=== PATIENT | female | born 1955 | race Caucasian/White ===

== ENCOUNTER 2019-08-12 07:23 | Outpatient (CLI) | payer OTHER, SELFPAY ==
--- NOTE | ~2019-08-12 | DEXA_ITS ---
Bone Density Report Name: Rhoda Ibarra Age: 64 Sex: Female Ethnicity: White Date of : 1955 Indication: postmenopausal; height loss; prior fracture; Referring Provider: CHI AUGUST Study: Bone densitometry was performed. Exam Date: August 12, 2019 Accession number: [id number] Bone Density: Region BMD T-score Z-score Classification AP Spine (L1-L4) 0.873 -1.6 0.2 Osteopenia Femoral Neck (Left) 0.732 -1.1 0.5 Osteopenia Total Hip (Left) 0.871 -0.6 0.7 Normal Total Hip Bilateral Avg 0.867 -0.7 0.7 Normal Femoral Neck (Right) 0.716 -1.2 0.3 Osteopenia Total Hip (Right) 0.862 -0.7 0.6 Normal World Health Organization criteria for BMD impression classify patients as: Normal (T-score at or above -1.0), Osteopenia (T-score between -1.0 and -2.5), or Osteoporosis (T-score at or below -2.5). 10-year Fracture Risk(1): Major Osteoporotic Fracture 12% Hip Fracture 1.0% Reported Risk Factors: [place] (), Neck BMD=0.716, BMI=39.7, previous fracture (1) FRAX(R) Version 3.08. Fracture probability calculated for an untreated patient. Fracture probability may be lower if the patient has received treatment. Clinical Information Provided by Patient: Has had a low trauma fracture Has used the following medications: Vitamin D Patient maximum height was 69 Menopause Age: 32 No regular weight bearing exercise Drinks caffeinated beverages Onset of menses at age 13 Number of children 1 Impression: The patient has low bone mass, based on the Total Spine T-score. The patient has an estimated ten-year risk of hip fracture of 1% and an estimated ten-year risk of major fracture of 12%, based on the WHO FRAX algorithm. The patient has risk factors, including: previous fracture. Discussion: BONE DENSITY IS LOW AT ONE OR MORE SKELETAL SITES. This patient's lowest T-score is low at one or more skeletal sites. It meets the World Health Organization's (WHO) criteria for ?low bone mass? (T-score between -1.0 and -2.5). The patient's 10-year risk of fracture as calculated by FRAX is less than the threshold where pharmacological therapy is recommended by the National Osteoporosis Foundation (NOF). However, all treatment decisions require clinical judgment and consideration of individual patient factors, including patient preferences, comorbidities, previous drug use, risk factors not captured in the FRAX model (e.g., frailty, falls, vitamin D deficiency, increased bone turnover, interval significant decline in bone density) and possible under or overestimation of fracture risk by FRAX. The patient should follow a healthful lifestyle (good nutrition with adequate calcium and vitamin D, and appropriate weight-bearing exercise). Follow-Up: Consider repeating this study in 2 to 3 years to reassess this patient's status, o
--- NOTE | ~2019-08-12 | US_ITS ---
EXAMINATION: US aorta [facility] DATE: 08/12/2019 08:02 INDICATION: Abdominal aortic aneurysm screening. TECHNIQUE: Grayscale, color Doppler, and pulsed Doppler images of the aorta and common iliac arteries were obtained. COMPARISON: None. FINDINGS: The proximal aorta measures 2.6 cm. The mid aorta measures 2.0 cm. The distal aorta measures 2.4 cm. The right common iliac artery measures 1.2 cm. The left common iliac artery measures 1.6 cm. IMPRESSION: 1. Normal abdominal aorta. No aneurysm. Reviewed, dictated and finalized at location A.
--- NOTE | ~2019-08-12 | MM_ITS ---
EXAMINATION: MM screening roro BI w neeraj HISTORY: Screening mammogram TECHNIQUE: Craniocaudal and mediolateral oblique 3-D tomosynthesis images were obtained and synthetic 2-D images were generated. CAD analysis was submitted and interpreted. COMPARISON: 04/17/2010 BREAST PARENCHYMAL COMPOSITION: There are scattered areas of fibroglandular density. FINDINGS: There is no evidence of suspicious mass, calcification, or architectural distortion to sugg est malignancy in either breast. There has been no suspicious interval change. IMPRESSION: 1. No mammographic evidence of malignancy. 2. Recommend routine screening mammography in one year. BI-RADS Category 1: Negative Reviewed, dictated and finalized at location A.
--- NOTE | 2019-08-12 08:04 | ECG_ITS ---
Measurements Intervals [place] Rate: 65 P: -42 LA: 157 QRS: -2 QRSD: 64 T: 11 QT: 394 QTc: 411 Interpretive Statements SINUS RHYTHM BASELINE ARTIFACT- II, III, AVF NORMAL ECG Electronically Signed On 08-12-2019 8:24:22 CDT by Ty Pablo D.O.
== END 2019-08-12 07:24 | disposition home or self-care (01) ==
PROVIDERS: PCP Internal Medicine; Visit Provider Internal Medicine
DX: Z12.31 Encounter for screening mammogram for malignant neoplasm of breast (principal); Z78.0 Asymptomatic menopausal state; Z13.6 Encounter for screening for cardiovascular disorders; M85.88 Other specified disorders of bone density and structure, other site; M85.852 Other specified disorders of bone density and structure, left thigh; M85.851 Other specified disorders of bone density and structure, right thigh
CPT/HCPCS: 76706; 77063; 77067; 77080; 93005

== ENCOUNTER 2022-01-10 09:28 | Outpatient (CLI) | payer OTHER, SELFPAY ==
[2022-01-10 18:47] LABS: Alanine Aminotransferase 20 U/L (6-35); Albumin Level 4.2 g/dL (3.5-5.1); Alkaline Phosphatase 78 U/L (38-126); Anion Gap 9 mmol/L (8-16); Aspartate Amino Transferase 32 U/L (14-36); Bilirubin,Total 0.5 mg/dL (0.2-1.3); Blood Urea Nitrogen 15 mg/dL (7-17); Calcium 8.9 mg/dL (8.4-10.2); Carbon Dioxide 28 mmol/L (22-30); Chloride 102 mmol/L (98-107); Cholesterol 201 mg/dL (0-200); Estimated Glomerular Filt Rate > 60; Glucose 94 mg/dL (65-110); HDL Direct 52 mg/dL; Potassium 4.1 mmol/L (3.4-5.0); Sodium 139 mmol/L (137-145); Triglycerides 108 mg/dL (<150)
[2022-01-10 19:06] LABS: LDL Cholesterol Direct 114 mg/dL
[2022-01-10 19:17] LABS: Thyroid Stimulating Hormone Reflex 0.773 uIU/mL (0.465-4.68)
== END 2022-01-10 09:29 | disposition home or self-care (01) ==
LOC: ANHGOSHLAB 09:29
PROVIDERS: PCP Family Medicine; Visit Provider Family Medicine
DX: E78.5 Hyperlipidemia, unspecified (principal); E03.9 Hypothyroidism, unspecified; Z13.228 Encounter for screening for other metabolic disorders
CPT/HCPCS: 36415; 80053; 80061; 84443

== ENCOUNTER 2022-03-29 14:10 | Emergency (ER) | payer OTHER, SELFPAY ==
--- NOTE | ~2022-03-29 | XR_ITS ---
EXAM: XR knee RT min 4V DATE: 03/29/2022 15:07 HISTORY: tripped over gumball , generalized pain . COMPARISON: 12/27/2011. FINDINGS: Decreased mineralization. No fracture or dislocation. No lytic or blastic lesion. Tricompa rtmental osteoarthritis. No erosion or periosteal change. Soft tissues within normal limits. IMPRESSION: No acute osseous finding in the right knee. Reviewed, dictated and finalized at location K.
--- NOTE | ~2022-03-29 | XR_ITS ---
EXAM: XR elbow RT min 3V DATE: 03/29/2022 15:06 HISTORY: tripped over gumball , generalized pain . COMPARISON: None available. FINDINGS: Normal mineralization. Impacted right radial head fracture. Cortical irregularity versus s ummation artifact along the superior and anterior aspect of the olecranon. No lytic or blastic lesion . Joint spaces are maintained. No erosion or periosteal change. Soft tissues within normal limits. IMPRESSION: Mildly impacted right radial head fracture. Cortical irregularity versus summation artifa ct over the superior and anterior aspect of the olecranon, correlate with posterior pain/point tender ness. Reviewed, dictated and finalized at location K. IMPRESSION: Mildly impacted right radial head fracture. Cortical irregularity v ersus summation artifact over the superior and anterior aspect of the olecranon , correlate with posterior pain/point tenderness.
--- NOTE | ~2022-03-29 | XR_ITS ---
EXAM: XR hand LT min 3V DATE: 03/29/2022 15:07 HISTORY: fall, pain over the ulnar eminence . COMPARISON: None available. FINDINGS: Decreased mineralization. No fracture or dislocation. No lytic or blastic lesion. Scattere d degenerative change. No erosion or periosteal change. Soft tissues within normal limits. IMPRESSION: No acute osseous finding in the left hand. Reviewed, dictated and finalized at location K.
--- NOTE | ~2022-03-29 | XR_ITS ---
EXAM: XR wrist RT min 3V DATE: 03/29/2022 15:07 HISTORY: tripped over gumball , generalized pain . COMPARISON: 12/30/2011, images only. FINDINGS: Normal mineralization. No acute fracture or dislocation. Old angulated distal radial fract ure. No lytic or blastic lesion. Radiocarpal osteoarthritis. Mild chronic scapholunate widening. No e rosion or periosteal change. Soft tissues within normal limits. IMPRESSION: No acute osseous finding in the right wrist. Reviewed, dictated and finalized at location K.
--- NOTE | ~2022-03-29 | XR_ITS ---
EXAM: XR foot LT min 3V DATE: 03/29/2022 15:07 HISTORY: tripped over gumball , generalized pain . COMPARISON: None available. FINDINGS: Decreased mineralization. No fracture or dislocation. No lytic or blastic lesion. Scattere d degenerative change. No erosion or periosteal change. Soft tissues within normal limits. IMPRESSION: No acute osseous finding in the left foot. Reviewed, dictated and finalized at location K.
[2022-03-29 14:23] VITALS: BP 152/64; PULSE 72; RESP 16; TEMP 36.3; O2SAT 97
--- NOTE | 2022-03-29 14:52 | ED.FALL ---
HPI - Fall General Chief Complaint: Fall <VINAYAK Strickland Filed: 03/29/22 18:23> Stated Complaint: fell, elbow and ankle pain <VINAYAK Strickland Filed: 03/29/22 18:23> Time Seen by Provider: 03/29/22 14:29 <VINAYAK Strickland Last Filed: 03/29/22 18:23> Source: patient <VINAYAK Strickland Filed: 03/29/22 18:23> Mode of arrival: ambulatory <VINAYAK Strickland Filed: 03/29/22 18:23> Limitations: no limitations <VINAYAK Strickland Filed: 03/29/22 18:23> History of Present Illness HPI Narrative: Patient is a 67 y/o female who presents to the ED with c/o fall. Patient reports she tripped and fell over a [place] tree pod just prior to arrival. She states she fell straight forward. She did not hit her head or lose consciousness. Denies any prodromal symptoms. She complains of pain to her right elbow, right wrist, right knee, left foot, left hand. No chest pain, difficulty breathing, abdominal pain, nausea, vomiting, vision changes, dizziness. No wounds. <VINAYAK Strickland Last Filed: 03/29/22 18:23> Related Data Allergies/Adverse Reactions: Allergies Allergy/AdvReac Type Severity Reaction Status Date / Time No Known Allergies Allergy Verified 01/10/22 09:22 <VINAYAK Strickland Last Filed: 03/29/22 18:23> Review of Systems Review of Systems: CONSTITUTIONAL: Denies fever, chills, or sweats. EYES: Denies visual changes. CARDIOVASCULAR: Denies chest paina. RESPIRATORY: Denies dyspnea. GASTROINTESTINAL: Denies abdominal pain, nausea, vomiting, or diarrhea. MUSCULOSKELETAL: Reports pain to right elbow, right wrist, right knee, left foot, left hand. NEUROLOGIC: Denies HI, LOC, dizziness, headache, numbness, or weakness. <RAYMOND StricklandC - Last Filed: 03/29/22 18:23> All systems reviewed & are unremarkable except as noted in HPI and below <Alyx Robbins PA-C - Last Filed: 03/29/22 18:23> [facility] Past Medical History Medical History: Medical History Dysthymia Gastroesophageal reflux disease without esophagitis Hypothyroidism (acquired) <Alyx Robbins PA-C - Last Filed: 03/29/22 18:23> Surgical History Surgical History: Surgical History H/O: hysterectomy <Alyx Robbins PA-C - Last Filed: 03/29/22 18:23> Family History Family History: Family History Other Family history of arthritis Family history of cardiovascular disease <Alyx Robbins PA-C - Last Filed: 03/29/22 18:23> Social History Social History: Social History Smoking status: Never smoker Alcohol intake: current Drinks per week: 2 Alcohol use details: wine Substance use: never 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 HEAD: Normocephalic, atraumatic. EYES: PERRLA/EOMI. Conjunctiva clear. NECK: Supple. No adenopathy, no masses. No midline spinal tenderness. RESPIRATORY: Airway patent, respirations nonlabored. Clear to auscultation bilaterally, no rales, rhonchi, wheezing. CARDIOVASCULAR: Regular rate and rhythm without murmurs, rubs, or gallops. Radial and pedal pulses 2+ and equal bilaterally. ABDOMINAL: Soft, nontender, nondistended, no hepatosplenomegaly. Normoactive BS. MUSCULOSKELETAL: Moves all extremities. No gross deformities. Mild limited extension ROM of R elbow due to pain. Tenderness over proximal radial head, no direc
[2022-03-29] MEDS: KETOROLAC 30 MG/ML VIAL (*BKC) IM (15:12)
--- NOTE | 2022-03-30 03:56 | PC.NURSE ---
Primary RN needs to chart on pt. Pt not present in dept. when departure date/time entered by charge gang weigher.
== END 2022-03-30 03:56 | disposition home or self-care (01) ==
PROVIDERS: Emergency Provider Emergency Medicine; PCP Family Medicine
DX: S52.124A Nondisplaced fracture of head of right radius, initial encounter for closed fracture (principal); M25.572 Pain in left ankle and joints of left foot; M25.561 Pain in right knee; M79.642 Pain in left hand; M79.672 Pain in left foot; E03.9 Hypothyroidism, unspecified; W01.0XXA Fall on same level from slipping, tripping and stumbling without subsequent striking against object, initial encounter
CPT/HCPCS: 73080; 73110; 73130; 73564; 73630; 96372; 99284; A4565; J1885

== ENCOUNTER 2023-02-13 08:52 | Outpatient (CLI) | payer OTHER, SELFPAY ==
[2023-02-13 17:00] LABS: Basophils Absolute Auto 0.1 K/mm3 (0.0-0.1); Eosinophils Absolute Auto 0.3 K/mm3 (0-0.3); Eosinophils Percent Auto 5.2 % (0-4.4); Hematocrit 38.1 % (37.0-47.0); Hemoglobin 12.2 g/dL (12.0-15.0); Immature Granulocyte Absolute 0.01 K/mm3 (0.00-0.031); Immature Granulocyte Percent A 0.2 % (0-0.5); Lymphocytes Absolute Auto 1.49 K/mm3 (0.9-3.2); Lymphocytes Percent Auto 24.9 % (18.3-44.2); Mean Corpuscular Hemoglobin 31.5 pg (26-34); Mean Corpuscular Volume 98.4 fl (80-100); Mean Platelet Volume 11.3 fl (7.4-10.4); Monocytes Absolute Auto 0.5 K/mm3 (0.1-0.6); Monocytes Percent Auto 8.3 % (2.6-8.5); Neutrophils Absolute Auto 3.6 K/mm3 (1.3-6.7); Neutrophils Percent Auto 60.4 % (45.5-73.1); Platelet Count Result 216 k/mm3 (150-375); Red Blood Count 3.87 M/mm3 (4.2-5.4); Red Cell Distribution Width 13.1 % (11.5-14.5)
[2023-02-13 17:24] LABS: Alanine Aminotransferase 21 U/L (6-35); Albumin Level 3.9 g/dL (3.5-5.1); Alkaline Phosphatase 78 U/L (38-126); Anion Gap 4 mmol/L (8-16); Aspartate Amino Transferase 31 U/L (14-36); Bilirubin,Total 0.7 mg/dL (0.2-1.3); Blood Urea Nitrogen 12 mg/dL (7-17); Calcium 8.5 mg/dL (8.4-10.2); Carbon Dioxide 30 mmol/L (22-30); Chloride 104 mmol/L (98-107); Cholesterol 203 mg/dL (0-200); Estimated Glomerular Filt Rate > 60; Glucose 95 mg/dL (65-110); Sodium 138 mmol/L (137-145); Triglycerides 75 mg/dL (<150)
[2023-02-13 17:48] LABS: Vitamin D 25 Hydroxy 18.4 ng/mL
[2023-02-13 17:50] LABS: LDL Cholesterol Direct 115 mg/dL
[2023-02-13 18:02] LABS: Thyroid Stimulating Hormone Reflex 0.958 uIU/mL (0.465-4.68)
[2023-02-13 20:16] LABS: HDL Direct 55 mg/dL
== END 2023-02-13 08:53 | disposition home or self-care (01) ==
LOC: ANHGOSHLAB 08:53
PROVIDERS: PCP Family Medicine; Visit Provider Family Medicine
DX: Z13.220 Encounter for screening for lipoid disorders (principal); R53.83 Other fatigue; Z13.228 Encounter for screening for other metabolic disorders; E55.9 Vitamin D deficiency, unspecified; E03.9 Hypothyroidism, unspecified
CPT/HCPCS: 36415; 80053; 80061; 82306; 84443; 85025

== ENCOUNTER 2024-04-10 07:59 | Day surgery (SDC) | payer OTHER, SELFPAY ==
[2024-04-10] VITALS (11 sets, daily range): BP systolic 113–160; BP diastolic 43–81; PULSE 62–85; RESP 16–20; TEMP 36.3–37.3; O2SAT 96–100
--- NOTE | ~2024-04-10 | CT_ITS ---
CT of the Abdomen and Pelvis: Indication: Abdominal pain Technique: 2.5 mm axial scans were obtained through the abdomen and pelvis following intravenous adm inistration of 100 cc of Omnipaque 350. Dose reduction technique was used on this scan by utilizing a utomated exposure control and iterative reconstruction technique. The dose-length product (DLP) was 9 98.26 mGy-cm. Findings: Scans through the lung bases demonstrate areas of linear bibasilar scarring or atelectasis . Small hiatal hernia. The liver, spleen, pancreas, gallbladder, adrenals and kidneys are within normal limits. No evidence of aortic aneurysm. No lymphadenopathy. No bowel obstruction or bowel wall thickening. Appendix is dilated to 10 mm with periappendiceal infl ammatory stranding. Images through the pelvis were performed. Urinary bladder unremarkable. No pelvic mass seen. No ascit es. Impression: Findings compatible with acute appendicitis, as above. No abscess or free air. Reviewed, dictated and finalized at [facility]. 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 No abscess or free air.
--- NOTE | 2024-04-10 11:34 | PC.NURSE ---
last oral intake was last night with dinner.
[2024-04-10] MEDS: ACETAMINOPHEN 500 MG TABLET 1000 MG PO (12:00)
[2024-04-10] MEDS: methocarbamoL 750 MG TABLET 1500 MG PO (12:01)
[2024-04-10 12:02] LABS: Basophils Percent Auto 0.4 % (0.2-1.2); Eosinophils Absolute Auto 0.1 K/mm3 (0-0.3); Eosinophils Percent Auto 1.4 % (0-4.4); Hematocrit 39.7 % (37.0-47.0); Hemoglobin 12.9 g/dL (12.0-15.0); Immature Granulocyte Absolute 0.02 K/mm3 (0.00-0.031); Immature Granulocyte Percent A 0.3 % (0-0.5); Lymphocytes Absolute Auto 0.84 K/mm3 (0.9-3.2); Lymphocytes Percent Auto 10.8 % (18.3-44.2); Mean Corpuscular HGB Conc 32.5 g/dl (32-36); Mean Corpuscular Hemoglobin 31.7 pg (26-34); Mean Corpuscular Volume 97.5 fl (80-100); Mean Platelet Volume 11.1 fl (7.4-10.4); Monocytes Percent Auto 13.2 % (2.6-8.5); Neutrophils Absolute Auto 5.8 K/mm3 (1.3-6.7); Neutrophils Percent Auto 73.9 % (45.5-73.1); Platelet Count Result 205 k/mm3 (150-375); Red Blood Count 4.07 M/mm3 (4.2-5.4); Red Cell Distribution Width 12.8 % (11.5-14.5); White Blood Count 7.8 K/mm3 (4.5-10.0)
[2024-04-10 12:12] LABS: Alanine Aminotransferase 13 U/L (6-35); Albumin Level 4.3 g/dL (3.5-5.1); Alkaline Phosphatase 68 U/L (38-126); Anion Gap 9 mmol/L (4-12); Aspartate Amino Transferase 22 U/L (14-36); Bilirubin,Total 0.9 mg/dL (0.2-1.3); Blood Urea Nitrogen 14 mg/dL (7-17); Calcium 9.1 mg/dL (8.4-10.2); Carbon Dioxide 27 mmol/L (22-30); Chloride 102 mmol/L (98-107); Estimated CRCL calculation 72 ml/min; Estimated Glomerular Filt Rate > 60; Glucose 97 mg/dL (65-110); Lipase 55 U/L (23-300); Potassium 3.9 mmol/L (3.4-5.0); Sodium 138 mmol/L (137-145)
[2024-04-10 12:18] LABS: Add Urine Microscopic? YES; Appearance Urine Turbid (Clear); Bacteria Urine 2+ /hpf; Bilirubin Urine Negative (Negative); Blood Urine Negative (Negative); Color Urine Dark Yellow (Yellow); Glucose Urine UA Negative (Negative); Ketones Urine Trace mg/dL (Negative); Leukocyte Esterase Ur 1+ LEU/UL (Negative); Nitrate Urine Negative (Negative); Non Pathogenic Casts 0-2; Protein Urine Negative (Negative); RBC Urine 0-2 /hpf (0-2); Specific Grav Ur 1.021 (1.001-1.035); Squamous Epithelial Cell Urine Many /hpf (Few); WBC Urine 21-50 /hpf (0-3)
--- NOTE | 2024-04-10 13:08 | ED_ITS ---
HPI - General Adult General Chief complaint: Abdominal Pain Stated complaint: right lower abd pain Time Seen by Provider: 04/10/24 11:21 History of Present Illness HPI narrative: This is a 69-year-old female presenting with 4 days of right lower quadrant pain. Patient was at work trying to move a file cabinet she felt a twinge in her right lower quadrant. Since then it has gotten progressively worse. The pain is described as an achy pain that is sharp when she moves. Never had pain like this before. Worse with movement and no exacerbating factors. She did have 1 episode nausea but no vomiting. No fevers chills chest pain difficulty breathing or urinary symptoms. Related Data Home Medications Medication Instructions Recorded Confirmed cholecalciferol (vitamin D3) 50 50 mcg PO DAILY 02/16/23 04/08/24 mcg (2,000 unit) capsule Allergies Allergy/AdvReac Type Severity Reaction Status Date / Time No Known Allergies Allergy Verified 04/10/24 07:59 [facility] Past Medical History Medical History Dysthymia Gastroesophageal reflux disease without esophagitis History of stress test Hypothyroidism (acquired) Surgical History Surgical History H/O: hysterectomy History of tooth extraction Hx of tonsillectomy Family History Family History Other Family history of arthritis Family history of cardiovascular disease Social History Social History Smoking status: Never smoker Alcohol intake: current Drinks per week: 2 Alcohol use details: wine Substance use: never Substance use type: does not use Lack of Transportation: No Lack of Food: Never True Current Housing: I Have Housing Concerned About Future Housing: No Difficulty Paying Gas/Electric Bills: No Difficulty Paying for Meds: No Currently Unemployed: No Education: Master's Degree or Higher Difficulty w/ Childcare or Family Care: No Living arrangements: with family Additional living arrangements comments: Son Occupation/Education: occupation 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 HEAD: ATRAUMATIC. EYES: EOMI, NOSE: ATRAUMATIC NECK: TRACHEA MIDLINE RESPIRATORY: NO INCREASED RATE OF BREATHING, clear to auscultation CARDIOVASCULAR: RRR, ABDOMINAL: NON-DISTENDED tenderness palpation in the right lower quadrant, voluntary guarding, no rebound MUSCULOSKELETAL: NO OBVIOUS DEFORMITIES NEURO: ALERT. MOVING 4/4 EXTREMITIES SKIN:: WARM, DRY. NORMAL COLOR PSYCHIATRIC: NORMAL AFFECT Course Vital Signs Vital signs: Vital Signs Temperature 98.0 F 04/10/24 08:03 Pulse Rate 82 04/10/24 08:03 Respiratory Rate 16 04/10/24 08:03 Blood Pressure 148/79 H 04/10/24 08:03 Pulse Oximetry 97 04/10/24 08:03 Oxygen Delivery Room Air 04/10/24 08:03 Temperature 99.1 F 04/10/24 11:24 Pulse Rate 79 04/10/24 11:24 Respiratory Rate 18 04/10/24 11:24 Blood Pressure 155/78 H 04/10/24 11:24 Pulse Oximetry 96 04/10/24 11:24 Oxygen Delivery Room Air 04/10/24 11:24 Medical Decision Making MDM Narrative Medical decision making narrative: -Course: 69-year-old female presenting with 4 days of right lower quadrant. CT showed acute uncomplicated appendicitis. Laboratory studies within normal limits. No white count/acidosis. VS Stable. Patient started on pip/tazo. Surgery was contacted. Tthe patient be admitted for further management. -DDX includes but is not limited to: Musculoskeletal strain, appendicitis, colitis -Co-morbidities complicating care: Depression, hypothyroid -Independent interpretation of studies: Labs reviewed Imaging reviewed Urine with 21-50 white blood cells and +1 leuk esterase and 2+ bacteria. Howeve r many squamous cells contaminated. This will be covered by antibiotics for appendicitis. -Interventions:Tylenol, Robaxin, pip/tazo, 2L normal saline -Shared decision making / Disposition: admitted. Vital Signs Vital Signs: Vital Signs Temperature 98.0 F 04/10/24 08:03 Pulse Rate 82 04/10/24 08:03 Respiratory Rate 16 04/10/24 08:03 Blood Pressure 148/79 H 04/10/24 08:03 Pulse Oximetry 97 04/10/24 08:03 Oxygen Delivery Room Air 04/10/24 08:03 Temperature 99.1 F 04/10/24 11:24 Pulse Rate 79 04/10/24 11:24 Respiratory Rate 18 04/10/24 11:24 Blood Pressure 155/78 H 04/10/24 11:24 Pulse Oximetry 96 04/10/24 11:24 Oxygen Delivery Room Air 04/10/24 11:24 Lab Data 04/10/24 11:55 04/10/24 11:55 Labs: Lab Results 04/10/24 04/10/24 Range/Units 11:55 12:10 WBC 7.8 (4.5-10.0) K/mm3 RBC 4.07 L (4.2-5.4) M/mm3 Hgb 12.9 (12.0-15.0) g/dL Hct 39.7 (37.0-47.0) % MCV 97.5 (80-100) fl MCH 31.7 (26-34) pg MCHC 32.5 (32-36) g/dl RDW 12.8 (11.5-14.5) % Plt Count 205 (150-375) k/mm3 MPV 11.1 H (7.4-10.4) fl Immature Gran % (Auto) 0.3 (0-0.5) % Neut % (Auto) 73.9 H (45.5-73.1) % Lymph % (Auto) 10.8 L (18.3-44.2) % [place] % (Auto) 13.2 H (2.6-8.5) % Eos % (Auto) 1.4 (0-4.4) % Baso % (Auto) 0.4 (0.2-1.2) % Lymph # (Auto) 0.84 L (0.9-3.2) K/mm3 [place] # (Auto) 1.0 H (0.1-0.6) K/mm3 Eos # (Auto) 0.1 (0-0.3) K/mm3 Baso # (Auto) 0.0 (0.0-0.1) K/mm3 Abs Immat Gran (auto) 0.02 (0.00-0.031) K/mm3 Absolute Neuts (auto) 5.8 (1.3-6.7) K/mm3 Absolute Nucleated RBC 0.000 (0.0-0.012) K/mm3 Nucleated RBC % 0.0 (0.0-0.2) % Sodium 138 (137-145) mmol/L Potassium 3.9 (3.4-5.0) mmol/L Chloride 102 (98-107) mmol/L Carbon Dioxide 27 (22-30) mmol/L Anion Gap 9 (4-12) mmol/L BUN 14 (7-17) mg/dL Creatinine 0.80 (0.7-1.0) mg/dL Estim Creat Clear Calc 72 ml/min Estimated GFR > 60 (59 - ) Glucose 97 (65-110) mg/dL Calcium 9.1 (8.4-10.2) mg/dL Total Bilirubin 0.9 (0.2-1.3) mg/dL AST 22 (14-36) U/L ALT 13 (6-35) U/L Alkaline Phosphatase 68 (38-126) U/L Total Protein 8.0 (6.3-8.2) g/dL Albumin 4.3 (3.5-5.1) g/dL Lipase 55 (23-300) U/L Urine Color Dark yellow (Yellow) Urine Appearance Turbid H (Clear) Urine pH 6.0 (5.0-9.0) Ur Specific [place] 1.021 (1.001-1.035) Urine Protein Negative (Negative) mg/dL Urine Glucose (UA) Negative (Negative) mg/dL Urine Ketones Trace H (Negative) mg/dL Ur Blood (Man) Negative (Negative) Urine Nitrate Negative (Negative) Urine Bilirubin Negative (Negative) Urine Urobilinogen 1.0 (<2.0) mg/dL Leukocyte Esterase Rfl 1+ H (Negative) LINA/UL Urine RBC 0-2 (0-2) /hpf Urine WBC 21-50 H (0-3) /hpf Ur Squamous Epith Cells Many H (Few) /hpf Urine Bacteria 2+ H /hpf Urine Casts 0-2 Discharge Plan Discharge Clinical Impression: Acute appendicitis Patient Disposition: Still a Patient Condition: Stable Prescriptions: No Action cholecalciferol (vitamin D3) 50 mcg (2,000 unit) capsule 50 mcg PO DAILY levothyroxine 175 mcg tablet 175 mcg PO DAILY Qty: 90 1RF atorvastatin 20 mg tablet 20 mg PO DAILY Qty: 90 1RF omeprazole 20 mg capsule,delayed release(DR/EC) 20 mg PO DAILY Qty: 90 1RF sertraline 100 mg tablet 100 mg PO DAILY Qty: 90 1RF Follow-up/Referrals: Sabas Whiting DO [Primary Care Provider] -
--- NOTE | 2024-04-10 13:35 | P.SS_ITS ---
Same Day Admit/Disch: HPI History of Present Illness Chief complaint: right lower abd pain Narrative: Rhoda Ibarra is a 69 year old female who came to the emergency room today with a 4 day history of right lower quadrant pain. She relates this to moving a heavy cabinet at work. At that time she felt a twinge in the right lower quadrant. That pain just continued to remain and in fact got worse. It is worse with movement and activity. She had an episode of nausea but no vomiting or diarrhea. She came to the emergency room where she was noted to be uncomfortable with normal vital signs. She was tender in the right lower quadrant with guarding. Her white blood [place] 7900. CT scan shows acute uncomplicated appendicitis. I reviewed the CT scan independently and agree that the distal 3rd of the appendix looks to be quite inflamed. Appendix is definitely dilated. [facility] Past Medical History Medical History Dysthymia Gastroesophageal reflux disease without esophagitis History of stress test Hypothyroidism (acquired) Surgical History Surgical History H/O: hysterectomy History of tooth extraction Hx of tonsillectomy Family History Family History Other Family history of arthritis Family history of cardiovascular disease Social History Social History Smoking status: Never smoker Alcohol intake: current Drinks per week: 2 Alcohol use details: wine Substance use: never Substance use type: does not use Lack of Transportation: No Lack of Food: Never True Current Housing: I Have Housing Concerned About Future Housing: No Difficulty Paying Gas/Electric Bills: No Difficulty Paying for Meds: No Currently Unemployed: No Education: Master's Degree or Higher Difficulty w/ Childcare or Family Care: No Living arrangements: with family Additional living arrangements comments: Son Occupation/Education: occupation 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 Gender identity (if verbalized by the patient): Female Spiritual care concerns: No Agree to blood products: Yes Same Day Admit/Disch: Med Pre-admit Medications Home Medications Medication Instructions Recorded Confirmed Type cholecalciferol (vitamin D3) 50 50 mcg PO DAILY 02/16/23 04/08/24 History mcg (2,000 unit) capsule levothyroxine 175 mcg tablet 175 mcg PO DAILY #90 tabs 03/10/24 04/08/24 Rx atorvastatin 20 mg tablet 20 mg PO DAILY #90 tabs 03/14/24 04/08/24 Rx omeprazole 20 mg capsule,delayed 20 mg PO DAILY #90 caps 03/14/24 04/08/24 Rx release sertraline 100 mg tablet 100 mg PO DAILY #90 tabs 03/14/24 04/08/24 Rx ibuprofen 600 mg tablet 600 mg PO Q6H PRN pain #14 tabs 04/10/24 Rx oxycodone-acetaminophen 5 mg-325 0.5 - 1 tablet PO Q6H PRN pain #10 04/10/24 Rx mg tablet tabs Review of Systems Review of Systems All systems reviewed & are unremarkable except as noted in HPI and below ( HPI and those items noted below) Constitutional Constitutional: Denies chills and Denies fever(s) Cardiovascular Cardiovascular: Denies chest pain, Denies diaphoresis, Denies dyspnea and Denies paroxysmal nocturnal dyspnea Respiratory Respiratory: Denies chest congestion, Denies cough and Denies dyspnea Integumentary/Breasts Skin/Breast: Denies lesions and Denies rash Exam Const: General: comfortable, no acute distress, alert and awake HENMT: Head: normocephalic and atraumatic Mouth: Yes Normal oral and palatal mucosa present Eyes: Conjunctivae: conjunctivae normal Pupils: Equal, round and reactive pupils present EOM: EOMs intact bilaterally Neck: Neck: normal visual inspection, no lymphadenopathy and nontender Resp: Effort & Inspection: normal respiratory effort Auscultation: clear to auscultation bilaterally Cardio: Rate: regular rate Rhythm: regular rhythm Heart sounds: no gallops, no murmurs and no rubs GI: Inspection: normal to inspection, non-distended and scar GI Palp: Yes Soft to palpation, Yes Tenderness to palpation present (GI) ( with guarding right lower quadrant), Yes Guarding due to palpation present (GI), No Hepatomegaly present, No Splenomegaly present, No Hernia present and No Palpable mass present Skin: Lesions: no lesions Rashes: no rashes Neuro: General: no focal motor deficits and CN's II-XI intact bilaterally Cranial nerves: Yes Equal, round and reactive pupils present, Yes Bilaterally i ntact EOM present, Yes facial symmetry and Yes Midline tongue present Speech: normal speech Motor exam (neuro): 5/5 motor strength present throughout and Motor abnormalities not present Extrem: General: no clubbing, cyanosis or edema and edema Psych: Affect: normal affect Thought process: Normal thought process present Insight: Good insight present (Psych) DS: Data Data Completed and Pending Labs on day of discharge: Labs from last 24 hours 04/10/24 04/10/24 12:10 11:55 WBC 7.8 RBC 4.07 L Hgb 12.9 Hct 39.7 MCV 97.5 MCH 31.7 MCHC 32.5 RDW 12.8 Plt Count 205 MPV 11.1 H Immature Gran % (Auto) 0.3 Neut % (Auto) 73.9 H Lymph % (Auto) 10.8 L [place] % (Auto) 13.2 H Eos % (Auto) 1.4 Baso % (Auto) 0.4 Lymph # (Auto) 0.84 L [place] # (Auto) 1.0 H Eos # (Auto) 0.1 Baso # (Auto) 0.0 Abs Immat Gran (auto) 0.02 Absolute Neuts (auto) 5.8 Absolute Nucleated RBC 0.000 Nucleated RBC % 0.0 Sodium 138 Potassium 3.9 Chloride 102 Carbon Dioxide 27 Anion Gap 9 BUN 14 Creatinine 0.80 Estim Creat Clear Calc 72 Estimated GFR > 60 Glucose 97 Calcium 9.1 Total Bilirubin 0.9 AST 22 ALT 13 Alkaline Phosphatase 68 Total Protein 8.0 Albumin 4.3 Lipase 55 Urine Color Dark yellow Urine Appearance Turbid H Urine pH 6.0 Ur Specific [place] 1.021 Urine Protein Negative Urine Glucose (UA) Negative Urine Ketones Trace H Ur Blood (Man) Negative Urine Nitrate Negative Urine Bilirubin Negative Urine Urobilinogen 1.0 Leukocyte Esterase Rfl 1+ H Urine RBC 0-2 Urine WBC 21-50 H Ur Squamous Epith Cells Many H Urine Bacteria 2+ H Urine Casts 0-2 DS: Summary Time Spent with Patient Time attestation: Total time spent providing and/or coordinating discharge services: DS: Admitting Diagnosis Discharge Date 04/10/2024 Admitting Diagnosis * acute appendicitis- plan to proceed with laparoscopic appendectomy. Discussed the alternative of nonsurgical treatment with antibiotics but at the patient's age, risk of appendiceal cancer is significant and would not want to leave the appendix in place due to this risk. Procedure, risks, benefits were discussed. All questions were answered. She agrees to go ahead. DS: Discharge Diagnosis Discharge Diagnosis (1) Acute appendicitis: Qualifiers: Acute appendicitis type: with localized peritonitis Appendicitis abscess presence: without abscess Appendicitis gangrene presence: without gangrene Appendicitis perforation presence: without perforation Qualified Code(s): K35.30 - Acute appendicitis with localized peritonitis, without perforation or gangrene Code(s): K35.80 - Unspecified acute appendicitis Status: Acute Assessment and Plan: Laparoscopic appendectomy performed 04/10/[address] Grace Discharge Plan Discharge Patient Disposition: Home, Self-Care Discharge Instructions: 1. May shower the day after surgery over incisions. 2. Call office for: -Wound increasingly painful or bleeding -Vomiting -Fever of greater than 101 degrees 3. Expect some blood on dressing and old blood on skin. 4. If no bowel movement for three days, take 1 oz. (30 ml) Milk of Magnesia, if no results, take Fleets enema. 5. No heavy lifting > 15-20 pounds for 2 weeks. 6. No driving for 3 days or while taking narcotic pain medications. 7. Up walking 10-30 minutes three times per day. 8. Resume previous home medications. 9. Follow-up 10-14 days in office for wound check or as previously scheduled. 10. Oral pain medications prescription to be sent home with patient. 11. NUTRITION: Start out by drinking fluids and increase your diet as tolerated. If you experience nausea, try dry toast, crackers, and 7-UP. If nausea or vomiting persists, contact your surgeon?s office. Stand Alone Forms: General Discharge Instructions Follow-up/Referrals: Chris Grace MD [Physician] - 04/18/24 (Call Dr. Reddy office to make appointment to see him 1 week from Thursday.) Discharge Medications: New oxycodone-acetaminophen 5-325 mg tablet 0.5 - 1 tablet PO Q6H PRN (Reason: pain) Qty: 10 0RF ibuprofen 600 mg tablet 600 mg PO Q6H PRN (Reason: pain) Qty: 14 0RF Continued cholecalciferol (vitamin D3) 50 mcg (2,000 unit) capsule 50 mcg PO DAILY levothyroxine 175 mcg tablet 175 mcg PO DAILY Qty: 90 1RF atorvastatin 20 mg tablet 20 mg PO DAILY Qty: 90 1RF omeprazole 20 mg capsule,delayed release(DR/EC) 20 mg PO DAILY Qty: 90 1RF sertraline 100 mg tablet 100 mg PO DAILY Qty: 90 1RF
[2024-04-10] MEDS: SODIUM CHLORIDE 0.9% IV 2,000 ML 999 ML IV CONT (13:51)
[2024-04-10] MEDS: PIPERACILLN/TAZ 3.375GM/NS50ML 3.375 GM/50 ML BAG IVPB (13:52)
--- NOTE | 2024-04-10 14:43 | WPDANESEPPF ---
Anes - Initial Pre Proc Eval Procedure: Operation Date: 04/10/24 15:00 Proposed Procedures p Laparoscopic Appendectomy - Chris Grace MD Date/Time: 04/10/24 14:43 Surgeon: Chris Grace MD Pre Op Diagnosis: right lower abd pain Patient Data Age: 69 Gender: F Height: 1.73 m Weight: 104.6 kg Last Vital Signs Temp 36.9 C 04/10/24 13:59 Pulse 68 04/10/24 13:59 Resp 20 04/10/24 13:59 BP 160/59 H 04/10/24 13:59 Pulse Ox 96 04/10/24 13:59 O2 Del Method Room Air 04/10/24 11:24 Allergies Allergy/AdvReac Type Severity Reaction Status Date / Time No Known Allergies Allergy Verified 04/10/24 07:59 Home Medications Medication Instructions Recorded Confirmed Type cholecalciferol (vitamin D3) 50 50 mcg PO DAILY 02/16/23 04/08/24 History mcg (2,000 unit) capsule levothyroxine 175 mcg tablet 175 mcg PO DAILY #90 tabs 03/10/24 04/08/24 Rx atorvastatin 20 mg tablet 20 mg PO DAILY #90 tabs 03/14/24 04/08/24 Rx omeprazole 20 mg capsule,delayed 20 mg PO DAILY #90 caps 03/14/24 04/08/24 Rx release sertraline 100 mg tablet 100 mg PO DAILY #90 tabs 03/14/24 04/08/24 Rx Laboratory Tests 04/10/24 04/10/24 11:55 12:10 WBC 7.8 K/mm3 (4.5-10.0) RBC 4.07 L M/mm3 (4.2-5.4) Hgb 12.9 g/dL (12.0-15.0) Hct 39.7 % (37.0-47.0) MCV 97.5 fl (80-100) MCH 31.7 pg (26-34) MCHC 32.5 g/dl (32-36) RDW 12.8 % (11.5-14.5) Plt Count 205 k/mm3 (150-375) MPV 11.1 H fl (7.4-10.4) Immature Gran % (Auto) 0.3 % (0-0.5) Neut % (Auto) 73.9 H % (45.5-73.1) Lymph % (Auto) 10.8 L % (18.3-44.2) [place] % (Auto) 13.2 H % (2.6-8.5) Eos % (Auto) 1.4 % (0-4.4) Baso % (Auto) 0.4 % (0.2-1.2) Lymph # (Auto) 0.84 L K/mm3 (0.9-3.2) [place] # (Auto) 1.0 H K/mm3 (0.1-0.6) Eos # (Auto) 0.1 K/mm3 (0-0.3) Baso # (Auto) 0.0 K/mm3 (0.0-0.1) Abs Immat Gran (auto) 0.02 K/mm3 (0.00-0.031) Absolute Neuts (auto) 5.8 K/mm3 (1.3-6.7) Absolute Nucleated RBC 0.000 K/mm3 (0.0-0.012) Nucleated RBC % 0.0 % (0.0-0.2) Sodium 138 mmol/L (137-145) Potassium 3.9 mmol/L (3.4-5.0) Chloride 102 mmol/L (98-107) Carbon Dioxide 27 mmol/L (22-30) Anion Gap 9 mmol/L (4-12) BUN 14 mg/dL (7-17) Creatinine 0.80 mg/dL (0.7-1.0) Estim Creat Clear Calc 72 ml/min Estimated GFR > 60 (59 - ) Glucose 97 mg/dL (65-110) Calcium 9.1 mg/dL (8.4-10.2) Total Bilirubin 0.9 mg/dL (0.2-1.3) AST 22 U/L (14-36) ALT 13 U/L (6-35) Alkaline Phosphatase 68 U/L (38-126) Total Protein 8.0 g/dL (6.3-8.2) Albumin 4.3 g/dL (3.5-5.1) Lipase 55 U/L (23-300) Urine Color Dark yellow (Yellow) Urine Appearance Turbid H (Clear) Urine pH 6.0 (5.0-9.0) Ur Specific [place] 1.021 (1.001-1.035) Urine Protein Negative mg/dL (Negative) Urine Glucose (UA) Negative mg/dL (Negative) Urine Ketones Trace H mg/dL (Negative) Ur Blood (Man) Negative (Negative) Urine Nitrate Negative (Negative) Urine Bilirubin Negative (Negative) Urine Urobilinogen 1.0 mg/dL (<2.0) Leukocyte Esterase Rfl 1+ H LINA/UL (Negative) Urine RBC 0-2 /hpf (0-2) Urine WBC 21-50 H /hpf (0-3) Ur Squamous Epith Cells Many H /hpf (Few) Urine Bacteria 2+ H /hpf Urine Casts 0-2 Patient hx anesthesia problems: none Family hx anesthesia problems: none Results Review: All pre-operative results and documents have been reviewed as part of the pre-operative evaluation. [facility] Past Medical History Medical History Dysthymia Gastroesophageal reflux disease without esophagitis History of stress test Hypothyroidism (acquired) Surgical History Surgical History H/O: hysterectomy History of tooth extraction Hx of tonsillectomy Family History Family History Other Family history of arthritis Family history of cardiovascular disease Social History Social History Smoking status: Never smoker Alcohol intake: current Drinks per week: 2 Alcohol use details: wine Substance use: never Substance use type: does not use Lack of Transportation: No Lack of Food: Never True Current Housing: I Have Housing Concerned About Future Housing: No Difficulty Paying Gas/Electric Bills: No Difficulty Paying for Meds: No Currently Unemployed: No Education: Master's Degree or Higher Difficulty w/ Childcare or Family Care: No Living arrangements: with family Additional living arrangements comments: Son Occupation/Education: occupation 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 Gender identity (if verbalized by the patient): Female Spiritual care concerns: No Agree to blood products: Yes Anes - Eval Final PreProcedure Day of Procedure 04/10/24 14:43 Patient weight: obese Heart: regular rate and rhythm Lungs: clear to auscultation Airway: Mallampati scale class II Neurological: alert and oriented Last oral intake: >/= 8 hours ASA classification: III Emergent: yes Anesthetic plan: proceed Anesthesia type and monitoring: general ETT and standard monitoring Results Review: All pre-operative results and documents have been reviewed as part of the pre-operative evaluation. Informed Consent: The patient's anesthetic plan and its attendant risks and benefits were discussed with the patient/family/POA. Questions were solicited and answers provided to the satisfaction of the patient/family/POA.
--- NOTE | 2024-04-10 15:03 | WPDHPUPDATE1 ---
History and Physical Update Update Date/Time: 04/10/24 15:03 History and Physical has been reviewed, including an updated exam of the patient. There are NO changes in the patient's condition. Risks, benefits, and alternatives have been discussed and questions answered. Patient agrees to proceed with procedure.
[2024-04-10] MEDS: BUPIVACAINE/EPINEPHRINE 0.5% 50 ML VIAL 30 ML INFILTRATE (15:16)
--- NOTE | 2024-04-10 15:44 | W.PM.PROC2 ---
Procedure Note - Detailed Date of Procedure 04/10/24 Pre-op Diagnosis Acute appendicitis Post-op Diagnosis Same Procedure Performed Laparoscopic appendectomy Surgeon Chris Grace MD Cyber Intelligence Analyst [facility] Anesthesia General and Local Indications Patient had been having 4 days worth of right lower quadrant abdominal pain and came to the emergency room today as this was getting worse. She was noticed to have tenderness in the right lower quadrant. She had a normal white count. CT scan showed acute uncomplicated appendicitis. She is taken to surgery now for laparoscopic appendectomy. Findings Distal 2/3 of the appendix was very inflamed. The mesoappendix was very thickened, edematous and inflamed as well. There was some similarity to fat wrapping although not clear cut. The distal ileum and cecum appeared normal. Description of Procedure Patient was taken to surgery and induced into general anesthesia. The abdomen is prepped and draped. Trocars were placed in the usual fashion using [employer] optical trocars and a 5 mm camera. Patient was placed in Trendelenburg with the right-side elevated. The appendix was easily found but it was entangled with inflammatory adhesions from the ligament of treatments and some mesentery of the small intestine. These adhesions were broken down and eventually the appendix was able to be grasped by the mesoappendix and elevated. As mentioned above the mesoappendix was very thickened and seemed to wrap around the appendix itself. By far most of the inflammation was in the distal half of the appendix. I dissected through the mesoappendix and found the appendiceal artery. I was able to thoroughly coagulate and divide the appendiceal artery. There was some other small vessels which were coagulated and divided as well. Eventually I dissected and skeletonized the base of the appendix. A Vicryl endoloop was used to ligate the appendix at its base. The appendix was then amputated just above the ligature. The mucosa of the appendiceal stump was cauterized. The appendix was immediately placed in an Endo-Catch bag retrieved through the 10 11 left lower quadrant trocar. This trocar was then replaced and we reviewed the areas of dissection and the appendiceal stump. Suction and irrigation were used in all residual blood and clot were suctioned away. The appendiceal stump looked good. We then evacuated CO2 and removed the trocar sleeves. All skin wounds were closed with subcuticular 4-0 Monocryl skin suture. The wounds were dressed with Exofin surgical adhesive. Patient was awakened and taken to recovery in good condition. Sponge needle counts were correct x2. Estimated Blood Loss -30 Drains No Packing No Pathology Yes (Appendix) Complications None Condition Stable Disposition PACU [facility] Billing Surgery - Charge Forward: Surgery Billing (Laparoscopic appendectomy)
[2024-04-10] MEDS: LACTATED RINGERS 1,000 ML 30 ML IV CONT (15:46)
--- NOTE | 2024-04-10 16:12 | SUR.PHASEI ---
1611: Simple mask removed.
[2024-04-10] MEDS: oxyCODONE HCL (*CRX) 5 MG TAB IR PO (17:09)
== END 2024-04-10 17:53 | disposition home or self-care (01) ==
LOC: ANHED 13:35 → ANHSURGERY 13:49
PROVIDERS: Emergency Provider Emergency Medicine; PCP Family Medicine; Visit Provider Surgery
PROC: 0DTJ4ZZ Resection of Appendix, Percutaneous Endoscopic Approach (ICD-10-PCS; CPT 44970; principal; 2024-04-10 15:00)
DX: K35.30 Acute appendicitis with localized peritonitis, without perforation or gangrene (principal); K38.2 Diverticulum of appendix; G89.18 Other acute postprocedural pain; E03.9 Hypothyroidism, unspecified; K21.9 Gastro-esophageal reflux disease without esophagitis; F34.1 Dysthymic disorder; E66.9 Obesity, unspecified; Z68.35 Body mass index [BMI] 35.0-35.9, adult; Z98.890 Other specified postprocedural states; Z82.49 Family history of ischemic heart disease and other diseases of the circulatory system
CPT/HCPCS: 44970; 36415; 74177; 80053; 81001; 83690; 85025; 87040; 87086; 88304; 96365; 99285; A9270; J1100; J2405; J2543; J2704; J3010; J7030; J7120; Q9967

== ENCOUNTER 2024-06-20 15:25 | Outpatient (CLI) | payer OTHER, SELFPAY ==
--- OUTSIDE RECORDS SUMMARY | 2024-06-20 16:15 | XMS_ITS | Clinical Summary ---
Author Organization [facility] [employer] Address [address] [place] [address] Care Team Providers Care Fountain Brush Assembler Name Role Phone Unavailable Primary Care Provider Unavailabl e Source Comments [facility],non-owned Affiliates and Associated Physician Practices is amultiple site organization consisting of ambulatory clinics and hospital sitesin [place], [place], [place] and [place]. This disclosure is being madepursuant to the Care Everywhere program and may not contain all information available regarding this patient. Last updated 18.[facility] [employer] Allergies Active Allergy Reactions Criticality Noted Date Comments Hydrocodone-Acetaminophen 02/26/2010 ITCHING Medications * Be aware that medications may not be up to date on this document. Alwaysverify current medications with the patient. Medication Sig Dispensed Refills Start Date End Date Status esomeprazole (NEXIUM) 40 MG capsule Take 40 mg by mouth daily before breakfast. Active levothyroxine (SYNTHROID) 175 MCG tablet Take 175 mcg by mouth daily before breakfast. 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 Social History Tobacco Use Types Packs/Day Years Used Date Smoking Tobacco: Never Smokeless Tobacco: Never Alcohol Use Standard Drinks/Week Comments Yes 0 (1 standard drink = 0.6 oz pur e alcohol) OCCASIONAL Sex and Gender Information Value Date Recorded Sex Assigned at Not on file Gender Identity Not on file Sexual Orientation Not on file Last Filed Vital Signs Vital Sign Reading Time Taken Comments Blood Pressure 138/55 07/13/2010 8:46 AM [facility] [employer] MANAGEMENT Pulse 63 07/13/2010 8:46 AM [employer] MANAGEMENT Temperature 37.1 ??C (98.7 ??F) 02/27/2010 1:51 PM CD T Respiratory Rate 20 07/13/2010 8:46 AM [facility] [employer] MANAGEMENT Oxygen Saturation 93% 02/27/2010 1:51 PM CDT Inhaled Oxygen Concentration - - Weight 108 kg (238 lb) 07/13/2010 8:46 AM [facility] [employer] MANAGEMENT Height 175.3 cm (5' 9 ) 07/13/2010 8:46 AM [facility] MANAGEMENT Body Mass Index 35.15 07/13/2010 8:46 AM [facility]NAGEMENT Plan of Treatment Health Maintenance Due Date Last Done Comments BONE DENSITY TESTING 1954 COLOGUARD (AGES 45-75) - COL ON CA SCREENING 1954 CT COLONOGRAPHY - COLON CA SCREENING 1954 FIT - COLON CA SCREENING 1954 FLEX SIG - COLON CA SCREENING 1954 LIPID TESTING 1954 MAMMOGRAM 1954 HEPATITIS C SCREENING 03/21/1972 DTAP/TDAP/TD VACCINES (1 - Tdap) 1973 PNEUMOCOCCAL VACCINE 50+ (1 of 1 - PCV) 2004 ZOSTER VACCINE (1 of 2) 2004 COLON MONITORING 07/13/2020 07/13/2010 COLONOSCOPY - COLON CA SCREENING 07/13/2020 07/13/19 11 Colorectal Cancer Screening 07/13/2020 COVID-19 VACCINE (1 - 2023-2 5 season) 2024 INFLUENZA VACCINE (#1) 2024 DEPRESSION SCREENING 05/25/2024 MEDICARE AWV ? CALENDAR YEAR 2024 Respiratory Syncytial Virus (RSV) Vaccine Pt: or over 60 yrs (1 - 1-dose 75+ series) 2029 HEPATITIS B VACCINE Aged Out No longe r eligible based on patient's age to complete this topic HIB VACCINE Aged Out No longer eligi ble based on patient's age to complete this topic HPV VACCINE Aged Out No longer eligi ble based on patient's age to complete this topic MENINGOCOCCAL (Group B) VACCINE Aged Out No longer eligible based on patient's age to complete this topic MENINGOCOCCAL VACCINE Aged Out No gwen sohail eligible based on patient's age to complete this topic Procedures Procedure Name Priority Date/Time Associated Diagnosis Comments ENDOSCOPY, COLON, SCREENING Routine 07/13/2010 8:38 AM [facility] [employer] [employer]NAGEMENT from Last 3 Months or Most Recently Relevant to Health Maintenance Advance Directives Documents on File Type Date Recorded Patient 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
--- OUTSIDE RECORDS SUMMARY | 2024-06-20 16:15 | XMS_ITS | Patient Health Summary ---
Author Organization [facility] Address [address] [place] [address] Care Team Providers Care Metal Bench Patternmaker Name Role Phone Unavailable Primary Care Provider Unavailabl e Note from [facility],non-owned Affiliates and Associated Physician Practices is amultiple site organization consisting of ambulatory clinics and hospital sitesin [place], [place], [place] and [place]. This disclosure is being madepursuant to the Care Everywhere program and may not contain all information available regarding this patient. Last updated 18.[facility] Allergies * Hydrocodone-Acetaminophen(ITCHING) Medications * Be aware that medications may not be up to date on this document. Alwaysverify current medications with the patient. * esomeprazole (NEXIUM) 40 MG capsule Take 40 mg by mouth daily before breakfast. * levothyroxine (SYNTHROID) 175 MCG tablet Take 175 mcg by mouth daily before breakfast. Active Problems Problem Noted Date Diagnosed Date [...] Comments Blood Pressure 138/55 07/13/2010 8:46 AM WIND PLANT MANAGER Pulse 63 07/13/2010 8:46 AM WIND PLANT MANAGER Temperature 37.1 ??C (98.7 ??F) 02/27/2010 1:51 PM CD T Respiratory Rate 20 07/13/2010 8:46 AM WIND PLANT MANAGER Oxygen Saturation 93% 02/27/2010 1:51 PM CDT Inhaled Oxygen Concentration - - Weight 108 kg (238 lb) 07/13/2010 8:46 AM WIND PLANT MANAGER Height 175.3 cm (5' 9 ) 07/13/2010 8:46 AM WIND PLANT MANAGER Body Mass Index 35.15 07/13/2010 8:46 AM WIND PLANT MANAGER Procedures * GROSS + MICRO EXAM(Performed 07/13/2010) * GROSS + MICRO EXAM(Performed 07/13/2010) * ENDOSCOPY, COLON, SCREENING(Performed 07/13/2010) * CARDIAC RHYTHM STRIP ORDER(Performed 03/05/2010) * GROSS + MICRO EXAM(Performed 02/26/2010) * GROSS + MICRO EXAM(Performed 02/26/2010) Performed for Enterocele * LAB HISTORICAL RESULTS-ONBASE(Performed 01/03/2010) Results * GROSS + MICRO EXAM (07/13/2010 11:30 AM WIND PLANT MANAGER) Only the most recent of4 resultswithin the time period is included. Result CASE NUMBER [id number] Comment: ORDERING PHYSICIAN ??SHAWNEE PORTER SPECIMEN TYPE ?Rectum Date ? 07/15/2010 Physician ?Yuan Porter Description ? The specimen is received in one Formalin-filled container labeled with the patient's name, Rhoda Ibarra and rectum polyp and consists of a 5 mm pink-santana fragment of tissue ??submitted entirely in a single cassette. MS/na Microscopic Exam ? Microsections reveal hyperplastic polyp formation and no evidence of malignancy. GM/na Diagnosis ? I. ?Rectum, polyp, biopsy -- ?Hyperplastic polyp GM/na Early Childhood Worker ? na Pathologist ?Larissa Altman MD [place]. ?07/15/2010 1527 <1> CPT code ? 95180 MISCELLANEOUS SAMPLES / Unknown 07/13/2010 11:30 AM WIND PLANT MANAGER 07/15/2010 7:07 AM WIND PLANT MANAGER Historical Provider LAB - PATHOLOGY/C YTOLOGY ORDERABLES * CARDIAC RHYTHM STRIP ORDER (03/05/2010 12:20 PM CDT) Narrative Procedure Note Document, Scanned - 03/05/2010 10:14 AM CDT Scanned Document CARDIAC SERVICES ORD ERABLES * LAB HISTORICAL RESULTS-ONBASE (01/03/2010) 01/03/2010 Historical Provider LAB - CHEMISTRY O RDERABLES [facility]
--- OUTSIDE RECORDS SUMMARY | 2024-06-20 16:15 | XMS_ITS | Referral Summary ---
Author Organization [facility] Address [address] [place] [address] Care Team Providers Care Burlap Bag Sewer Name Role Phone Unavailable Primary Care Provider Unavailabl e Source Comments [facility],non-owned Affiliates and Associated Physician Practices is amultiple site organization consisting of ambulatory clinics and hospital sitesin [place], [place], [place] and [place]. This disclosure is being madepursuant to the Care Everywhere program and may not contain all information available regarding this patient. Last updated 18.[facility] Allergies Active Allergy Reactions Criticality Noted Date [...] Comments Blood Pressure 138/55 07/13/2010 8:46 AM PHOTOGRAPHER APPRENTICE LITHOGRAPHIC Pulse 63 07/13/2010 8:46 AM PHOTOGRAPHER APPRENTICE LITHOGRAPHIC Temperature 37.1 ??C (98.7 ??F) 02/27/2010 1:51 PM CD T Respiratory Rate 20 07/13/2010 8:46 AM PHOTOGRAPHER APPRENTICE LITHOGRAPHIC Oxygen Saturation 93% 02/27/2010 1:51 PM CDT Inhaled Oxygen Concentration - - Weight 108 kg (238 lb) 07/13/2010 8:46 AM PHOTOGRAPHER APPRENTICE LITHOGRAPHIC Height 175.3 cm (5' 9 ) 07/13/2010 8:46 AM PHOTOGRAPHER APPRENTICE LITHOGRAPHIC Body Mass Index 35.15 07/13/2010 8:46 AM PHOTOGRAPHER APPRENTICE LITHOGRAPHIC Plan of Treatment Not on file Procedures Procedure Name Priority Date/Time Associated Diagnosis Comments ENDOSCOPY, COLON, SCREENING Routine 07/13/2010 8:38 AM PHOTOGRAPHER APPRENTICE LITHOGRAPHIC from Last 3 Months or Most Recently Relevant to Health Maintenance Advance Directives Documents on File Type Date Recorded Patient Raveler Expl anation Adv Directive/Living Will/POA 03/05/2010 10:14 AM * Full Code (Latest Code Status on File) Date Activated Date Inactivated Comments 02/26/2010 6:59 PM 02/28/2010 7:10 AM
[2024-06-20 21:11] LABS: Free T4 Free Thyroxine 2.18 ng/dL (0.78-2.19)
[2024-06-20 21:17] LABS: Thyroid Stimulating Hormone 0.022 uIU/mL (0.465-4.680)
== END 2024-06-20 15:26 | disposition home or self-care (01) ==
LOC: ANHGOSHLAB 15:25
PROVIDERS: PCP Family Medicine; Visit Provider Family Medicine
DX: E03.9 Hypothyroidism, unspecified (principal)
CPT/HCPCS: 36415; 84439; 84443

== ENCOUNTER 2024-12-01 15:11 | Outpatient (CLI) | payer OTHER, SELFPAY ==
--- OUTSIDE RECORDS SUMMARY | 2024-12-01 15:14 | XMS_ITS | Clinical Summary ---
Author Organization [facility] [employer] Address [address] [place] [address] Care Team Providers Care City Library Director Name Role Phone Unavailable Primary Care Provider Unavailabl e Source Comments [facility] [employer],non-owned Affiliates and Associated Physician Practices is amultiple site organization consisting of ambulatory clinics and hospital sitesin [place], [place], [place] and [place]. This disclosure is being madepursuant to the Care Everywhere program and may not contain all information available regarding this patient. Last updated 18.[facility] [employer] Allergies Active Allergy Reactions Criticality Noted Date Comments Hydrocodone-Acetaminophen 02/26/2010 ITCHING Medications * Be aware that medications may not be up to date on this document. Alwaysverify current medications with the patient. esomeprazole (NEXIUM) 40 MG capsule Take 40 [...] = 0.6 oz pur e alcohol) OCCASIONAL Comments No Sex and Gender Information Value Date Recorded Sex Assigned at Not on file Legal Sex Female 5:50 AM CHRONOMETER ASSEMBLER AND ADJUSTER Gender Identity Not on file Sexual Orientation Not on file Last Filed Vital Signs Vital Sign Reading Time Taken Comments Blood Pressure 138/55 07/13/2010 8:46 AM CHRONOMETER ASSEMBLER AND ADJUSTER Pulse 63 07/13/2010 8:46 AM CHRONOMETER ASSEMBLER AND ADJUSTER Temperature 37.1 C (98.7 F) 02/27/2010 1:51 PM CDT Respiratory Rate 20 07/13/2010 8:46 AM CHRONOMETER ASSEMBLER AND ADJUSTER Oxygen Saturation 93% 02/27/2010 1:51 PM CDT Inhaled Oxygen Concentration - - Weight 108 kg (238 lb) 07/13/2010 8:46 AM CHRONOMETER ASSEMBLER AND ADJUSTER Height 175.3 cm (5' 9) 07/13/2010 8:46 AM CHRONOMETER ASSEMBLER AND ADJUSTER Body Mass Index 35.15 07/13/2010 8:46 AM CHRONOMETER ASSEMBLER AND ADJUSTER Plan of Treatment Health Maintenance Due Date Last Done Comments BONE DENSITY TESTING 1954 COLOGUARD (AGES 45-75) - COL ON CA SCREENING 1954 CT COLONOGRAPHY - COLON CA SCREENING 1954 FIT - COLON CA SCREENING 1954 FLEX SIG - COLON CA SCREENING 1954 LIPID TESTING 1955 MAMMOGRAM 1955 MEDICARE AWV 12 MONTHS 1954 HEPATITIS C SCREENING 03/21/1972 DTAP/TDAP/TD VACCINES (1 - Tdap) 1973 PNEUMOCOCCAL VACCINE 50+ (1 of 1 - PCV) 2004 ZOSTER VACCINE (1 of 2) 2004 COLON MONITORING 07/13/2020 07/13/2010 COLONOSCOPY - COLON CA SCREENING 07/13/2020 07/13/19 11 Colorectal Cancer Screening 07/13/2020 COVID-19 VACCINE ( - 2023-2 5 season) 2024 DEPRESSION SCREENING 05/25/2024 INFLUENZA VACCINE (#1) 2025 Respiratory Syncytial Virus (RSV) Vaccine Pt: or [...] to complete this topic MENINGOCOCCAL (Group B) VACC INE SHARED DECISION-MAKING Aged Out No longer eligibl e based on patient's age to complete this topic MENINGOCOCCAL GROUPS A/C/Y/W VACCINE Aged Out No longer eligible b ased on patient's age to complete this topic Procedures Procedure Name Priority Date/Time Associated Diagnosis Comments ENDOSCOPY, COLON, SCREENING Routine 07/13/2010 8:38 AM CHRONOMETER ASSEMBLER AND ADJUSTER from Last 3 Months or Most Recently Relevant to Health Maintenance Insurance [facility] MEDICARE SELF PAY NO INSURANCE Member Subscriber Plan / Payer (Ef fective for All Dates) Name:Rhoda Ibarra Member ID:Not on file Relation to Subscriber:Not on file Name:RHODA IBARRA Subscriber ID:Not on file (Home) Address: [address] [place] [address] [place] [address] Payer ID:Not on file Group ID:Not on file Type:Self Pay Address: [place], [place] Advance Directives Documents on File Type Date Recorded Patient Mcat Instructor Expl anation Adv Directive/Living Will/POA 03/05/2010 10:14 AM * Full Code (Latest Code Status on File) Date Activated Date Inactivated Comments 02/26/2010 6:59 PM 02/28/2010 7:10 AM
[2024-12-01 18:49] LABS: Hematocrit 39.4 % (37.0-47.0); Hemoglobin 12.5 g/dL (12.0-15.0); Mean Corpuscular HGB Conc 31.7 g/dl (32-36); Mean Corpuscular Hemoglobin 31.5 pg (26-34); Mean Corpuscular Volume 99.2 fl (80-100); Platelet Count Result 202 k/mm3 (150-375); Red Blood Count 3.97 M/mm3 (4.2-5.4); White Blood Count 7.1 K/mm3 (4.5-10.0)
[2024-12-01 18:55] LABS: Alanine Aminotransferase 16 U/L (6-35); Albumin Level 4.3 g/dL (3.5-5.1); Alkaline Phosphatase 64 U/L (38-126); Anion Gap 9 mmol/L (4-12); Aspartate Amino Transferase 40 U/L (14-36); Bilirubin,Total 0.8 mg/dL (0.2-1.3); Blood Urea Nitrogen 17 mg/dL (7-17); Calcium 9.1 mg/dL (8.4-10.2); Carbon Dioxide 26 mmol/L (22-30); Chloride 104 mmol/L (98-107); Cholesterol 218 mg/dL (0-200); Estimated Glomerular Filt Rate > 60; Glucose 81 mg/dL (65-110); HDL Direct 58 mg/dL; Potassium 3.5 mmol/L (3.4-5.0); Sodium 139 mmol/L (137-145); Total Protein 7.5 g/dL (6.3-8.2); Triglycerides 88 mg/dL (<150)
[2024-12-01 19:26] LABS: Thyroid Stimulating Hormone 7.490 uIU/mL (0.465-4.680)
[2024-12-01 21:38] LABS: Free T4 Free Thyroxine 1.44 ng/dL (0.78-2.19)
== END 2024-12-01 15:12 | disposition home or self-care (01) ==
LOC: ANHGOSHLAB 15:13
PROVIDERS: PCP Family Medicine; Visit Provider Nurse Practitioner
DX: E03.9 Hypothyroidism, unspecified (principal); E78.5 Hyperlipidemia, unspecified; D64.9 Anemia, unspecified; E55.9 Vitamin D deficiency, unspecified
CPT/HCPCS: 36415; 80053; 80061; 84439; 84443; 85027

== ENCOUNTER 2024-12-06 13:17 | Emergency (ER) | payer OTHER, SELFPAY ==
[2024-12-06] VITALS (19 sets, daily range): BP systolic 136–157; BP diastolic 60–80; PULSE 56–68; RESP 9–25; TEMP 36.8; O2SAT 97–100
--- NOTE | ~2024-12-06 | XR_ITS ---
EXAMINATION: XR chest 2V 12/06/2024 13:51 INDICATION: Chest pain PROCEDURE: 2 view chest COMPARISON: No prior studies for comparison. FINDINGS: The lungs are clear. The cardiomediastinal silhouette is within normal limits. There are no pleural effusions. There is no pneumothorax suspected. The lungs are hyperinflated which is consistent with, but not diagnostic of chronic obstructive pulmo nary disease. IMPRESSION: 1: NO ACUTE CARDIOPULMONARY DISEASE. Reviewed, dictated and finalized at location B.
--- NOTE | 2024-12-06 13:20 | ECG_ITS ---
Test Date: 2024-12-06 13:26:12 Measurements Intervals [place] Rate: 57 P: -17 [place]: 165 QRS: -9 QRSD: 86 T: 3 QT: 422 QTc: 413 Interpretive Statements SINUS BRADYCARDIA OTHERWISE NORMAL ELECTROCARDIOGRAM No previous ECG available for comparison Electronically Signed On 12-06-2024 13:28:03 CDT by Devyn Hernández M.D.
[2024-12-06 13:34] LABS: Hematocrit 39.3 % (37.0-47.0); Hemoglobin 12.7 g/dL (12.0-15.0); Immature Granulocyte Percent A 0.3 % (0-0.5); Lymphocytes Absolute Auto 1.92 K/mm3 (0.9-3.2); Mean Corpuscular HGB Conc 32.3 g/dl (32-36); Mean Corpuscular Hemoglobin 31.5 pg (26-34); Mean Corpuscular Volume 97.5 fl (80-100); Nucleated Red Blood Cells Absolute Auto 0.000 K/mm3 (0.0-0.012); Nucleated Red Blood Cells Perc 0.0 % (0.0-0.2); Platelet Count Result 239 k/mm3 (150-375); Red Blood Count 4.03 M/mm3 (4.2-5.4); White Blood Count 7.3 K/mm3 (4.5-10.0)
[2024-12-06 13:47] LABS: INR 1.0; Prothrombin Time 13.6 Seconds (11.1-14.7)
[2024-12-06 13:48] LABS: Partial Thromboplastin Time 27.4 Seconds (22.3-36.8)
[2024-12-06 13:54] LABS: Alanine Aminotransferase 16 U/L (6-35); Albumin Level 4.3 g/dL (3.5-5.1); Alkaline Phosphatase 67 U/L (38-126); Anion Gap 10 mmol/L (4-12); Aspartate Amino Transferase 29 U/L (14-36); Bilirubin,Total 0.9 mg/dL (0.2-1.3); Blood Urea Nitrogen 15 mg/dL (7-17); Calcium 9.2 mg/dL (8.4-10.2); Carbon Dioxide 24 mmol/L (22-30); Chloride 106 mmol/L (98-107); Estimated CRCL calculation 59 ml/min; Estimated Glomerular Filt Rate 58; Glucose 95 mg/dL (65-110); Lipase 82 U/L (23-300); Potassium 3.4 mmol/L (3.4-5.0); Sodium 140 mmol/L (137-145); Total Protein 7.7 g/dL (6.3-8.2)
--- OUTSIDE RECORDS SUMMARY | 2024-12-06 14:00 | XMS_ITS | Clinical Summary ---
Author Organization [facility] Address [address] [place] [address] Care Team Providers Care Human Resource Consultant Name Role Phone Unavailable Primary Care Provider Unavailabl e Source Comments [facility],non-owned Affiliates and Associated Physician Practices is amultiple site organization consisting of ambulatory clinics and hospital sitesin [place], [place], [place] and [place]. This disclosure is being madepursuant to the Care Everywhere program and may not contain all information available regarding this patient. Last updated 18.[facility] Allergies Active Allergy Reactions Criticality Noted Date [...] on file Legal Sex Female 5:50 AM ROLLER CLEANER Gender Identity Not on file Sexual Orientation Not on file Last Filed Vital Signs Vital Sign Reading Time Taken Comments Blood Pressure 138/55 07/13/2010 8:46 AM ROLLER CLEANER Pulse 63 07/13/2010 8:46 AM ROLLER CLEANER Temperature 37.1 C (98.7 F) 02/27/2010 1:51 PM CDT Respiratory Rate 20 07/13/2010 8:46 AM ROLLER CLEANER Oxygen Saturation 93% 02/27/2010 1:51 PM CDT Inhaled Oxygen Concentration - - Weight 108 kg (238 lb) 07/13/2010 8:46 AM ROLLER CLEANER Height 175.3 cm (5' 9) 07/13/2010 8:46 AM ROLLER CLEANER Body Mass Index 35.15 07/13/2010 8:46 AM ROLLER CLEANER Plan of Treatment Health Maintenance Due Date [...] ENDOSCOPY, COLON, SCREENING Routine 07/13/2010 8:38 AM ROLLER CLEANER from Last 3 Months or Most Recently Relevant to Health Maintenance Insurance [facility] MEDICARE SELF PAY NO INSURANCE Member Subscriber Plan / Payer (Ef fective for All Dates) Name:Rhoda Ibarra Member ID:Not on file Relation to Subscriber:Not on file Name:RHODA IBARRA Subscriber ID:Not on file (Home) Address: [address] [place] [address] [place] [address] Payer ID:Not on file Group ID:Not on file Type:Self Pay Address: [place], [place] Advance Directives Documents on File Type Date Recorded Patient Senior Program Planner Expl anation Adv Directive/Living Will/POA 03/05/2010 10:14 AM * Full Code (Latest Code Status on File) Date Activated Date Inactivated Comments 02/26/2010 6:59 PM 02/28/2010 7:10 AM
--- OUTSIDE RECORDS SUMMARY | 2024-12-06 14:01 | XMS_ITS | Patient Health Record ---
Author Organization [facility] Address [address] [place] [address] Support Name Relationship Address Phone CYNTHIA LOPES Guarantor Unknown [phone] Reason For Referral No Information Medications Medication SIG (Take, Route, Frequency, Duration) Notes Start Date End Date Status Omeprazole 20 MG Oral Act latasha Sertraline HCl 100 MG Oral Active HYDROcodone-Acetaminophen 5-325 MG Oral Active Naproxen 500 MG Oral Acti ve buPROPion HCl ER (XL) 150 MG Oral Active Levothyroxine Sodium 175 MCG Oral Active Atorvastatin Calcium 20 MG Oral Active Plan Of Treatment No Information Insurance Providers Payer Name Payer Address Payer Phone Subscriber Number Group Number Insured Name Patient Relationship to Insured Coverage Start Date Coverage End Date [employer] Medicare Replacement/ Advantage - [place] [address] [place] [phone] [id number] CYNTHIA LOPES Self - patient is the insured
--- NOTE | 2024-12-06 14:04 | ED.CHESTPAIN ---
HPI - Chest Pain General Chief Complaint: Chest Pain Stated Complaint: cp Source: patient Mode of arrival: EMS Limitations: no limitations History of Present Illness HPI narrative: Patient is a 69-year-old female who presents the ED via EMS with report of chest pain. Patient reports she was at work today and was in a heated conversation on the computer with her boss. She began feeling very stressed and overwhelmed. She developed chest pain, present throughout her left-sided chest, described as a heaviness and squeezing sensation. She states she attempted ambulating, but pain continued to worsen. She did feel mildly short of breath and nauseous with the pain. She then called EMS. She states pain has resided since being in the ED. Patient denies history of similar pain previous cardiac disease. She does take medication for hyperlipidemia, denies history of hypertension, diabetes. Denies smoking history. Has family history of heart disease in her father in his 60s. Related Data Home Medications ?Medication ?Instructions ?Recorded ?Confirmed ?Last Taken ?Type cholecalciferol (vitamin D3) 25 25 mcg PO DAILY 08/01/24 12/06/24 Unknown History mcg (1,000 unit) capsule Allergies Allergy/AdvReac Type Severity Reaction Status Date / Time No Known Allergies Allergy Verified 12/06/24 13:24 Review of Systems Review of Systems: All systems reviewed & are unremarkable except as noted in HPI. All systems reviewed & are unremarkable except as noted in HPI and below PMFSH Past Medical History Medical History History of stress test Dysthymia Gastroesophageal reflux disease without esophagitis Hypothyroidism (acquired) Surgical History Surgical History Hx of appendectomy History of tooth extraction Hx of tonsillectomy H/O: hysterectomy Family History Family History Other Family history of arthritis Family history of cardiovascular disease Social History Social History Smoking status: Never smoker Alcohol intake: current Drinks per week: 2 Alcohol use details: wine Substance use: never Substance use type: does not use Lack of Transportation: No Lack of Food: Never True Current Housing: I Have Housing Concerned About Future Housing: No Difficulty Paying Gas/Electric Bills: No Difficulty Paying for Meds: No Currently Unemployed: No Education: Master's Degree or Higher Difficulty w/ Childcare or Family Care: No Living arrangements: with family Additional living arrangements comments: Son Occupation/Education: occupation 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 HEAD: Normocephalic, atraumatic. RESPIRATORY: Airway patent, respirations nonlabored. Clear to auscultation bilaterally, no rales, rhonchi, wheezing. CARDIOVASCULAR: Regular rate and rhythm without murmurs, rubs, or gallops. Peripheral pulses intact. ABDOMINAL: Soft, nontender, nondistended. Normoactive BS. MUSCULOSKELETAL: Moves all extremities. No gross deformities. No chest wall tenderness to palpation. No peripheral edema or calf tenderness. SKIN: Warm, dry, normal color. NEURO: A&O X3. Speech clear. Cranial nerves II-XII grossly intact. Steady gait. No ataxic movements. PSYCHIATRIC: Appropriate mood and affect. Normal interaction. Course Vital Signs Vital signs: Vital Signs Temperature 98.2 F 12/06/24 13:35 Pulse Rate 59 L 12/06/24 13:35 Respiratory Rate 17 12/06/24 13:35 Blood Pressure 148/71 H 12/06/24 13:35 Pulse Oximetry 100 12/06/24 13:35 Temperature 98.2 F 12/06/24 13:35 Pulse Rate 68 12/06/24 17:02 Respiratory Rate 12/06/24 17:02 Blood Pressure 138/60 12/06/24 17:02 Pulse Oximetry 100 12/06/24 17:02 MDM - Chest Pain MDM Narrative Medical decision making narrative: Patient presented to ED with episode of chest pain that began earlier today, after heated argument with boss. Has subsided since being in the ED. Vital signs are stable upon arrival. EKG is without ischemic changes. Baseline troponin undetectable. D-dimer within normal range. Chest x-ray is clear. Basic laboratory studies are otherwise unremarkable. No concerning findings. HEART score =4 3 hr trop also undetectable. 3HR ekg w/o interval changes Patient has not had any further CP since being in the ED. Utilized shared decision making regarding admission for further cardiac eval vs d/c home and close OP f/u. Patient would prefer to go home. She does not wish to be admitted at this time. Advised close follow-up with PCP to discuss outpatient stress testing. Patient given very strict return precautions. She is in agreement with plan. Discharged in stable condition. Medical Records Data Attestation: I reviewed the patient's medical records. Lab Data Attestation: I reviewed the patient's lab results. 12/06/24 13:27 12/06/24 13:27 Labs: Lab Results 12/06/24 12/06/24 Range/Units 13:27 16:17 WBC 7.3 (4.5-10.0) K/mm3 RBC 4.03 L (4.2-5.4) M/mm3 Hgb 12.7 (12.0-15.0) g/dL Hct 39.3 (37.0-47.0) % MCV 97.5 (80-100) fl MCH 31.5 (26-34) pg MCHC 32.3 (32-36) g/dl RDW 13.3 (11.5-14.5) % Plt Count 239 (150-375) k/mm3 MPV 10.9 H (7.4-10.4) fl Immature Gran % (Auto) 0.3 (0-0.5) % Neut % (Auto) 58.6 (45.5-73.1) % Lymph % (Auto) 26.3 (18.3-44.2) % [place] % (Auto) 9.2 H (2.6-8.5) % Eos % (Auto) 4.8 H (0-4.4) % Baso % (Auto) 0.8 (0.2-1.2) % Lymph # (Auto) 1.92 (0.9-3.2) K/mm3 [place] # (Auto) 0.7 H (0.1-0.6) K/mm3 Eos # (Auto) 0.4 H (0-0.3) K/mm3 Baso # (Auto) 0.1 (0.0-0.1) K/mm3 Abs Immat Gran (auto) 0.02 (0.00-0.031) K/mm3 Absolute Neuts (auto) 4.3 (1.3-6.7) K/mm3 Absolute Nucleated RBC 0.000 (0.0-0.012) K/mm3 Nucleated RBC % 0.0 (0.0-0.2) % PT 13.6 (11.1-14.7) Seconds INR 1.0 APTT 27.4 (22.3-36.8) Seconds D-Dimer 0.43 (<0.48) ug/mL Sodium 140 (137-145) mmol/L Potassium 3.4 (3.4-5.0) mmol/L Chloride 106 (98-107) mmol/L Carbon Dioxide 24 (22-30) mmol/L Anion Gap 10 (4-12) mmol/L BUN 15 (7-17) mg/dL Creatinine 0.95 (0.7-1.0) mg/dL Estim Creat Clear Calc 59 ml/min Estimated GFR 58 L (59 - ) Glucose 95 (65-110) mg/dL Calcium 9.2 (8.4-10.2) mg/dL Total Bilirubin 0.9 (0.2-1.3) mg/dL AST 29 (14-36) U/L ALT 16 (6-35) U/L Alkaline Phosphatase 67 (38-126) U/L Troponin I < 0.012 < 0.012 (0.000-0.034) ng/mL Total Protein 7.7 (6.3-8.2) g/dL Albumin 4.3 (3.5-5.1) g/dL Lipase 82 (23-300) U/L Imaging Data Attestation: I personally reviewed and interpreted this imaging study as follows: Radiologist's impression: ITS Impressions Chest X-Ray 12/06/24 14:05 IMPRESSION: 1: NO ACUTE CARDIOPULMONARY DISEASE. ECG Data EKG #1: Attestation: I personally reviewed and interpreted this ECG as follows: ECG completion date: 12/06/24 ECG completion time: 13:26 EKG Interpretation: bradycardia (57), sinus rhythm and non-specific ST changes Discharge Plan Discharge Clinical Impression: Atypical chest pain Patient Disposition: Home Condition: Stable Instructions: Antibiotic Form, Angina (ED), Chest Pain (ED) Additional Instructions: Your workup here was reassuring against a cardiac cause of your chest pain. Recommend close follow-up with your primary care doctor for further evaluation and outpatient stress testing. Return to the ED if you experience recurrent chest pain, difficulty breathing or feeling short of breath, unable to keep down food or drink, pain or swelling in legs, or any other symptoms of concern. Patient Language: Georgian Prescriptions: No Action cholecalciferol (vitamin D3) 25 mcg (1,000 unit) capsule 25 mcg PO DAILY atorvastatin 20 mg tablet 20 mg PO DAILY Qty: 90 1RF omeprazole 20 mg capsule,delayed release(DR/EC) 20 mg PO DAILY Qty: 90 1RF sertraline 100 mg tablet 100 mg PO DAILY Qty: 90 1RF levothyroxine [Synthroid] 137 mcg tablet 137 mcg PO DAILY Qty: 90 1RF Follow-up/Referrals: Gisella Francois DO [Primary Care Provider] - Time of Disposition: 17:08 Quality HEART score for chest pain patients History: moderately suspicious ECG: normal Age: > or = to 65 years Risk factors: 1 or 2 risk factors Troponin: < or = to 1x normal limit Heart score: 4
[2024-12-06 14:05] LABS: Troponin I < 0.012 ng/mL (0.000-0.034)
--- NOTE | 2024-12-06 16:07 | ECG_ITS ---
Test Date: 2024-12-06 16:13:45 Measurements Intervals [place] Rate: 57 P: -12 ND: 177 QRS: -16 QRSD: 80 T: -1 QT: 433 QTc: 423 Interpretive Statements SINUS BRADYCARDIA Compared to ECG 12/06/2024 13:26:12 No significant changes Electronically Signed On 12-07-2024 12:35:41 CDT by Jonah Villalpando M.D.
[2024-12-06 16:45] LABS: Troponin I < 0.012 ng/mL (0.000-0.034)
== END 2024-12-06 17:17 | disposition home or self-care (01) ==
PROVIDERS: Emergency Provider Physician Assistant; PCP Family Medicine
DX: R07.89 Other chest pain (principal); E03.9 Hypothyroidism, unspecified; K21.9 Gastro-esophageal reflux disease without esophagitis; Z90.710 Acquired absence of both cervix and uterus; Z79.899 Other long term (current) drug therapy; R00.1 Bradycardia, unspecified
CPT/HCPCS: 36415; 71046; 80053; 83690; 84484; 85025; 85380; 85610; 85730; 93005; 99284